=== PATIENT | female | born 1970 | race Caucasian/White ===

== ENCOUNTER → 2024-08-21 | Outpatient (CLI) | payer OTHER ==
--- NOTE | 2024-08-24 07:19 | PE ---
EXAMINATION TYPE: PET CT fusion skull to thigh DATE OF EXAM: 08/21/2024 COMPARISON: NONE HISTORY: Lung nodule TECHNIQUE: Following the intravenous administration of 12.69 mCi of F-18 FDG, whole body images are performed from the skull base to the midthigh. Images are reviewed on the computer in the coronal, a xial, and sagittal planes. Reconstructed rotating images are created on independent workstation and reviewed on the computer. A localization and attenuation correction CT is performed in conjunction with the PET scan. Blood glucose level equals 95 SCAN: Initial Scan FINDINGS: SKULL BASE AND NECK: Symmetric cervical muscular and brown fat uptake greatest in the lower neck. CHEST, MEDIASTINUM, AND HILAR REGION: Mild to moderate underlying emphysematous change is present. Mi ld symmetric paraspinal muscular uptake in the thoracic spine. No suspicious hypermetabolic pulmonary nodules. There is hypermetabolic uptake near the origin of the 3 great vessels without corresponding suspicious soft tissue nodule or lymph node also presumed brown fat. No suspicious hypermetabolic en larged lymph nodes are identified. ABDOMEN AND PELVIS: No suspicious hypermetabolic adrenal masses. Normal excretion. No suspicious area s of abnormal hypermetabolic uptake. OSSEOUS STRUCTURES: No suspicious areas of abnormal hypermetabolic uptake. OTHER CT: Mild calcified plaque bilateral carotid bulb level. There is 1.8 cm simple appearing thin-w alled cyst in the left hepatic lobe axial image 150. IMPRESSION: No hypermetabolic pulmonary nodules. No definitive areas of abnormal suspicious hypermeta bolic uptake. Advise follow-up diagnostic CT imaging in 6-12 months time as per [employer] re commendation. Correlate clinically. [facility], , 08/24/2024 7:17 AM
== END | disposition home or self-care (01) ==
LOC: RADPETMAIN 12:02
PROVIDERS: ATTEND Internal Medicine Critical Care Medicine
DX: R91.1 Solitary pulmonary nodule (principal)
CPT/HCPCS: 78815; A9552